=== PATIENT | male | born 2000 | race Caucasian/White ===

== ENCOUNTER 2021-09-23 09:56 | Emergency (ER) | payer OTHER ==
[~2021-09-23] VITALS: Ht 188 cm; Wt 99.3 kg
[2021-09-23] MEDS ORDERED: CYCL-707 PO (13:49)
[2021-09-23] MEDS ORDERED: MEDR4PAK PO (13:49)
[2021-09-23 13:50] VITALS: BP 144/92
== END 2021-09-23 13:58 | disposition home or self-care (01) ==
LOC: M ED 09:56
DX: M50.30 Other cervical disc degeneration, unspecified cervical region (principal); M51.27 Other intervertebral disc displacement, lumbosacral region; M51.36 Other intervertebral disc degeneration, lumbar region; M54.12 Radiculopathy, cervical region; M54.16 Radiculopathy, lumbar region

== ENCOUNTER → 2022-05-04 | Outpatient (REF) ==
[~2022-05-04] MED LIST: CYCL-707 PO; MEDR4PAK PO
== END ==
LOC: M PLAIMG 10:03
PROVIDERS: ATTEND Internal Medicine
DX: M54.9 Dorsalgia, unspecified (principal)